=== PATIENT | male | born 1995 | race Two or more races ===

== ENCOUNTER 2025-01-26 05:35 | Day surgery (SDC) | payer OTHER ==
[2025-01-25 10:30] VITALS: BP 132/82
[2025-01-25 10:49] LABS: URINE APPEARANCE Clear; URINE BILIRRUBIN Negative (NEGATIVE); URINE BLOOD NHT; URINE COLOR Yellow; URINE GLUCOSE Negative (NEGATIVE); URINE KETONE Negative (NEGATIVE); URINE LEUKOCYTE Negative; URINE NITRATE Negative; URINE PROTEIN Negative (NEGATIVE)
[2025-01-25 10:54] LABS: URINE BACTERIA 9.7 uL (0.0-1933); URINE EPITHELIAL CELLS 1.8 uL (0.0-38.8); URINE RBC 10.4 uL (0.0-20.8); URINE WBC 8.7 uL (0.0-23.2)
[2025-01-25 10:59] LABS: HEMATOCRIT 41.7 % (39.0-48.0); HEMOGLOBIN 13.7 g/dL (13-16.00); MEAN CELL VOLUME 82.3 fL (80.0-100.00); MEAN CORPUSCULAR HEMOGLOBIN 27.1 pg (27.00-32.0); MEAN CORPUSCULAR HGB CONC 32.9 g/dl (32.0-36.0); PLATELET COUNT 276 K/uL (150-450); RED BLOOD COUNT 5.07 M/uL (4.00-6.00); RED CELL DISTRIBUTION WIDTH 12.5 % (11.5-14.5)
[2025-01-25 11:05] LABS: URINE CAST 0.14 uL (0.0-1.40)
[2025-01-25 11:16] LABS: INR 1.01; PARTIAL THROMBOPLASTIN TIME 33.6 SECONDS (22.0-34.0)
[2025-01-25 11:44] LABS: ALBUMIN 3.7 gm/dL (3.4-5.0); BILIRUBIN TOTAL 0.47 mg/dL (0.3-1.2); CALCIUM 9.5 mg/dL (8.5-10.1); CREATININE SERUM 0.79 mg/dL (0.70-1.30); GFR 116.79; POTASSIUM 4.51 mEq/L (3.5-5.1); TOTAL PROTEIN 7.7 gm/dL (6.4-8.2)
[~2025-01-26] VITALS: Ht 172.7 cm; Wt 59.0 kg
[2025-01-26] MEDS ORDERED: CEFAZOLIN SODIUM 1,000 MG VIAL ONE (07:18)
[2025-01-26] MEDS ORDERED: BUPIVACAINE HCL/MPF 0.5% 30ML VIAL ONE (07:18)
[2025-01-26] MEDS ORDERED: ISOPROPYL ALCOHOL 30 ML OUNCE TOP ONE (09:00)
[2025-01-26] MEDS ORDERED: SUGAMMADEX SODIUM 200 MG/2 ML VIAL IV ONE (10:22)
[2025-01-26] MEDS ORDERED: MORPHINE SULFATE 4 MG/ML VIAL IV ONE (10:45)
== END 2025-01-26 13:35 | disposition home or self-care (01) ==
LOC: CIR.AMB 05:35
PROVIDERS: ATTEND Orthopaedic Surgery Hand Surgery
DX: S62.313A Displaced fracture of base of third metacarpal bone, left hand, initial encounter for closed fracture (principal); S62.315A Displaced fracture of base of fourth metacarpal bone, left hand, initial encounter for closed fracture; J32.9 Chronic sinusitis, unspecified; J45.909 Unspecified asthma, uncomplicated